=== PATIENT | female | born 1990 | race African-American/Black ===

== ENCOUNTER 2021-02-15 08:31 | Outpatient (CLI) | payer OTHER | END 2021-02-15 08:32 | disposition home or self-care (01) | LOC: CSHULT 08:31 | PROVIDERS: ATTEND Family Medicine | DX: O09.892 Supervision of other high risk pregnancies, second trimester (principal); Z3A.25 25 weeks gestation of pregnancy | CPT/HCPCS: 76805 ==

== ENCOUNTER 2022-01-04 09:03 | Outpatient (CLI) | payer OTHER | END 2022-01-04 09:04 | disposition home or self-care (01) | LOC: CSHULT 09:03 | PROVIDERS: ATTEND Family Medicine | DX: Z34.82 Encounter for supervision of other normal pregnancy, second trimester (principal); Z3A.20 20 weeks gestation of pregnancy | CPT/HCPCS: 76805 ==

== ENCOUNTER 2022-04-19 21:21 | Inpatient (IN) | payer OTHER ==
[~2022-04-19 21:21] MED LIST: Bupivacaine 0.25% HCL 30 ML VIAL ONE; Bupivacaine HCl 0.5%/Epinephrine 1:200,000/PF 30 ml Vial ONE
[2022-04-19 21:46] VITALS: BMI 27.3
[2022-04-19] MEDS ORDERED: Promethazine HCl 25 MG/ML VIAL IM PRN (22:23)
[2022-04-19] MEDS ORDERED: Zolpidem Tartrate 5 MG TAB PO PRN (22:23)
[2022-04-19] MEDS ORDERED: hydrALAZINE 20 MG/ML VIAL SLOW IVP PRN (22:23)
[2022-04-19] MEDS ORDERED: Butorphanol Tartrate 1 MG/ML VIAL SLOW IVP PRN (22:23)
[2022-04-19] MEDS ORDERED: Ondansetron PF 4 MG/2 ML Vial IVP PRN (22:23)
[2022-04-19] MEDS ORDERED: HYDROcodone/Acetaminophen 5/325 mg Tablet PO PRN ×2 (22:23)
[2022-04-19] MEDS ORDERED: Lidocaine 1% (PF) 30 ML VIAL SC PRN (22:23)
[2022-04-19] MEDS ORDERED: Lactated Ringer's 1,000 ML IV SCH ×2 (22:30)
[2022-04-19] MEDS ORDERED: NS w/ Oxytocin 30 units 500 ML IV SCH (22:30)
[2022-04-19] MEDS ORDERED: Penicillin G Potassium 5 MILL.UNITS in Sodium Chloride 0.9% 100 ML IVPB SCH (22:30)
[2022-04-19 22:46] LABS: Hemoglobin 10.4 g/dL (12.0-15.5); Mean Corpuscular HGB CONC 32.8 g/dL (32.0-36.0); Mean Corpuscular Hemoglobin 30.1 pg (27.0-33.0); Mean Corpuscular Volume 91.6 fl (81.6-98.3); Mean Platelet Volume 11.7 fl (7.4-10.4); Platelet Count 221 10x3/uL (150-450); Red Blood Cell (RBC) Count 3.46 10x6/uL (3.90-5.03); White Blood Cell (WBC) Count 16.4 10x3/uL (3.5-10.5)
[2022-04-19] MEDS ORDERED: Betamet Acet/Betamet Na Ph 30 MG/5 ML VIAL IM SCH (23:00)
[2022-04-19 23:14] LABS: Hep B Surf Ag Non-Reactive S/CO (NonReactive); Syphilis Antibody Nonreactive (Nonreactive); Syphilis Antibody Index 0.03 S/CO (<1.00 Non-Reactive)
[2022-04-19 23:15] LABS: HBSAg Index 0.15 S/CO (0-0.99)
[2022-04-20 01:16] LABS: SARS-CoV-2 NAA Rapid Test Not Detected (NotDetected)
[2022-04-20] MEDS: Penicillin G 2.5 MILL.units 2.5 MILL.UNITS in Premix Bag 1 BAG IVPB SCH ×2 (03:02→15:59)
[2022-04-20] MEDS ORDERED: Fentanyl 2 mcg/Bup 0.1% Cadd 100 ML ONE (07:35)
[2022-04-20] MEDS ORDERED: ceFAZolin 2 GM/Dextrose 50 ML IVPB ONE (08:48)
[2022-04-20] MEDS ORDERED: Famotidine/PF 20 mg/2ml Vial ONE (08:49)
[2022-04-20] MEDS ORDERED: Fentanyl 100 MCG/2 ML VIAL ONE (09:05)
[2022-04-20] MEDS ORDERED: Oxytocin 10 UNITS/ML VIAL ONE (09:08)
[2022-04-20] MEDS ORDERED: Morphine PF 10 MG/10 ML VIAL ONE (09:09)
[2022-04-20] MEDS ORDERED: Ondansetron PF 4 MG/2 ML Vial ONE (09:14)
[2022-04-20] MEDS ORDERED: Dexamethasone 4 mg/ml Vial ONE (09:14)
[2022-04-20 09:22] LABS: pH (Cord, venous) 7.429 (7.250-7.350)
[2022-04-20] MEDS ORDERED: Ketorolac Tromethamine 30 MG/ML VIAL ONE (09:42)
[2022-04-20] MEDS ORDERED: Misoprostol 200 MCG TAB PR PRN (15:36)
[2022-04-20] MEDS ORDERED: Ondansetron PF 4 MG/2 ML Vial IVP PRN (15:36)
[2022-04-20] MEDS ORDERED: hydrALAZINE 20 MG/ML VIAL SLOW IVP PRN (15:36)
[2022-04-20] MEDS ORDERED: Bisacodyl 10 MG SUPP PR PRN (15:36)
[2022-04-20] MEDS ORDERED: Promethazine HCl 25 MG/ML VIAL IM PRN (15:36)
[2022-04-20] MEDS ORDERED: NS w/ Oxytocin 30 units 500 ML IV SCH (15:36)
[2022-04-20] MEDS ORDERED: Boostrix 0.5 ML (Tdap) VIAL IM ONE (15:36)
[2022-04-20] MEDS ORDERED: Simethicone Chewable 80 MG TAB PO PRN (15:36)
[2022-04-20] MEDS: Lactated Ringer's 1,000 ML IV SCH (16:00)
[2022-04-20] MEDS: Ketorolac Tromethamine 30 MG/ML VIAL IVP SCH (16:12)
[2022-04-20] MEDS: Ferrous Sulfate 325 MG TAB PO SCH (21:24)
[2022-04-21 03:52] LABS: Hemoglobin 8.2 g/dL (12.0-15.5); Mean Corpuscular HGB CONC 33.7 g/dL (32.0-36.0); Mean Corpuscular Hemoglobin 29.8 pg (27.0-33.0); Mean Corpuscular Volume 88.4 fl (81.6-98.3); Mean Platelet Volume 11.4 fl (7.4-10.4); Platelet Count 195 10x3/uL (150-450); RBC Distribution Width 13.9 % (11.5-14.5); Red Blood Cell (RBC) Count 2.75 10x6/uL (3.90-5.03); White Blood Cell (WBC) Count 19.9 10x3/uL (3.5-10.5)
[2022-04-21] MEDS: Ketorolac Tromethamine 30 MG/ML VIAL IVP SCH ×2 (04:42→05:57)
[2022-04-21] MEDS: Lactated Ringer's 1,000 ML IV SCH ×2 (09:34→15:38)
[2022-04-21] MEDS: Ferrous Sulfate 325 MG TAB PO SCH ×2 (09:36→21:34)
[2022-04-21] MEDS: Docusate 100 MG CAP PO SCH ×2 (09:36→21:33)
[2022-04-21] MEDS: Prenatal Vitamin 1 TAB PO SCH (09:36)
[2022-04-21] MEDS: HYDROcodone/Acetaminophen 5/325 mg Tablet PO PRN ×2 (11:37→19:48)
[2022-04-21] MEDS: Ibuprofen 800 MG TAB PO SCH ×2 (14:07→21:34)
[2022-04-22] MEDS: HYDROcodone/Acetaminophen 5/325 mg Tablet PO PRN ×3 (02:48→16:50)
[2022-04-22] MEDS: Ibuprofen 800 MG TAB PO SCH ×3 (05:40→21:27)
[2022-04-22] MEDS: Lactated Ringer's 1,000 ML IV SCH ×4 (06:33→15:53)
[2022-04-22] MEDS: Ferrous Sulfate 325 MG TAB PO SCH ×2 (08:49→21:27)
[2022-04-22] MEDS: Prenatal Vitamin 1 TAB PO SCH (08:49)
[2022-04-22] MEDS: Docusate 100 MG CAP PO SCH ×2 (08:50→21:27)
[2022-04-22 23:08] VITALS: TEMP 98.4
[2022-04-23] MEDS: Lactated Ringer's 1,000 ML IV SCH (00:58)
[2022-04-23] MEDS: Ibuprofen 800 MG TAB PO SCH (06:04)
[2022-04-23] MEDS: HYDROcodone/Acetaminophen 5/325 mg Tablet PO PRN ×2 (06:09→11:18)
[2022-04-23 07:22] VITALS: BP 129/82
[2022-04-23] MEDS: Ferrous Sulfate 325 MG TAB PO SCH (08:38)
[2022-04-23] MEDS: Docusate 100 MG CAP PO SCH (08:39)
[2022-04-23] MEDS: Prenatal Vitamin 1 TAB PO SCH (08:39)
== END 2022-04-23 11:45 | disposition home or self-care (01) | DRG 788 ==
LOC: CSHLD/OP 21:21 → CSHLD 22:44 → CSHPP 04-20 15:10
PROVIDERS: ADMIT Family Medicine; ATTEND Family Medicine
PROC: 10907ZC Drainage of Amniotic Fluid, Therapeutic from Products of Conception, Via Natural or Artificial Opening (ICD-10-PCS; 2022-04-19)
PROC: 10H07YZ Insertion of Other Device into Products of Conception, Via Natural or Artificial Opening (ICD-10-PCS; 2022-04-19)
PROC: 10D00Z1 Extraction of Products of Conception, Low, Open Approach (ICD-10-PCS; principal; 2022-04-20)
DX: O60.14X0 Preterm labor third trimester with preterm delivery third trimester, not applicable or unspecified (principal); O99.824 Streptococcus B carrier state complicating childbirth; O26.893 Other specified pregnancy related conditions, third trimester; Z67.11 Type A blood, Rh negative; Z37.0 Single live birth; Z20.822 Contact with and (suspected) exposure to COVID-19; Z3A.36 36 weeks gestation of pregnancy; O76 Abnormality in fetal heart rate and rhythm complicating labor and delivery
CPT/HCPCS: 36415; 51702; 82805; 85027; 86780; 86850; 86870; 86900; 86901; 87340; 88307; 99285; J0690; J0702; J1100; J1885; J2274; J2405; J2540; J2590; J3010; J3490; S0020; S0028; U0002